=== PATIENT | female | born 1945 | race Caucasian/White ===

== ENCOUNTER 2020-10-06 00:17 | Emergency (ER) | payer MEDICAID ==
[~2020-10-06] VITALS: Ht 152.4 cm; Wt 60.2 kg
[2020-10-06] MEDS ORDERED: ACETAMINOPHEN 325MG TABLET PO STA (01:33)
[2020-10-06 01:57] LABS: BASOPHILS % 0.4 % (0.0-2.0); HEMATOCRIT. 38.1 % (36.0-48.0); LYMPHOCYTES % 32.6 % (20.0-50.0); MEAN CORPUSCULAR HEMOGLOBIN 31.2 pg (28.0-32.0); MEAN CORPUSCULAR VOLUME 91.2 fL (81.0-99.0); MEAN PLATELET VOLUME 7.6 fl (7.4-10.4); MONOCYTES % 5.9 % (2.0-8.0); NEUTROPHILS % 61.1 % (40.0-76.0); PLATELET 159 x1000/uL (130-400); RED BLOOD CELL COUNT 4.17 mill/uL (4.2-5.4)
[2020-10-06 02:01] LABS: CHLORIDE 104 mEq/L (98-107)
[2020-10-06 04:35] LABS: CLARITY URINE CLEAR (CLEAR); COLOR URINE YELLOW (YELLOW); KETONES URINE TRACE (NEGATIVE); LEUKOCYTE ESTERASE URINE NEGATIVE (NEGATIVE); NITRITE URINE NEGATIVE (NEGATIVE); OCCULT BLOOD URINE 2+ (NEGATIVE); PROTEIN URINE 2+ (NEGATIVE); SPECIFIC GRAVITY URINE 1.015 (1.005-1.030); UROBILINOGEN URINE 0.2 E.U./dL (0.2-1.0)
[2020-10-06] MEDS ORDERED: ONDANSETRON HCL 4MG/2ML INJ IV ONE (05:45)
[2020-10-06] MEDS ORDERED: POTASSIUM CHLORIDE 20MEQ TABLET SR PO ONE (05:45)
[2020-10-06 06:06] VITALS: BP 132/88
== END 2020-10-06 06:45 | disposition home or self-care (01) ==
LOC: ER 00:17
DX: R09.89 Other specified symptoms and signs involving the circulatory and respiratory systems (principal); R50.9 Fever, unspecified; R05 Cough; R19.7 Diarrhea, unspecified; R53.1 Weakness; E87.6 Hypokalemia; R63.0 Anorexia; Z68.25 Body mass index [BMI] 25.0-25.9, adult; R10.9 Unspecified abdominal pain
CPT/HCPCS: 36415; 71045; 80048; 80076; 81003; 83605; 83690; 84145; 84484; 85025; 87040; 87086; 93005; 96374; 99285; J2405

== ENCOUNTER 2020-10-06 14:41 | Inpatient (IN) | payer MEDICAID, OTHER ==
[~2020-10-06] VITALS: Ht 157.5 cm; Wt 58.1 kg
[2020-10-06] MEDS ORDERED: MORPHINE SULFATE 4 MG/ML CPJ (NOT FOR IM USE) IV STA (15:36)
[2020-10-06] MEDS ORDERED: ONDANSETRON HCL 4MG/2ML INJ IV STA (15:36)
[2020-10-06 16:37] LABS: BASOPHILS % 0.2 % (0.0-2.0); HEMOGLOBIN. 12.4 g/dL (12.0-16.0); MEAN CORPUSCULAR HEMOGLOBIN 31.1 pg (28.0-32.0); MEAN PLATELET VOLUME 7.4 fl (7.4-10.4); MONOCYTES % 5.6 % (2.0-8.0); NEUTROPHILS % 66.2 % (40.0-76.0); PLATELET 168 x1000/uL (130-400); RED CELL DISTRIBUTION WIDTH 13.1 % (11.6-14.6)
[2020-10-06 16:44] LABS: CHLORIDE 103 mEq/L (98-107)
[2020-10-06 16:46] LABS: PROTHROMBIN TIME 10.4 sec (9.6-11.0)
[2020-10-06 16:48] LABS: ETHANOL BLOOD < 10 mg/dL
[2020-10-06 21:25] VITALS: BP 114/51
[2020-10-06] MEDS ORDERED: MORPHINE SULFATE 4 MG/ML CPJ (NOT FOR IM USE) IV PRN (21:29)
[2020-10-06] MEDS ORDERED: DIPHENHYDRAMINE 50MG/ML VIAL IV PRN (21:30)
[2020-10-06] MEDS ORDERED: IOHEXOL-300 100 ML BOTTLE ONE (22:11)
[2020-10-06 22:17] VITALS: BP 114/51
[2020-10-06] MEDS: ACETAMINOPHEN 325MG TABLET PO PRN (22:23)
[2020-10-07] VITALS: BP 107/54
[2020-10-07] MEDS: PIPERACILLIN/TAZOBACTAM 3.375 G in DEXT 5% WATER 100 ML IV SCH ×4 (01:16→21:10)
[2020-10-07] MEDS: DEXT 5%/0.45% NACL KCL 10MEQ/L 1,000 ML IV SCH ×3 (01:18→18:32)
[2020-10-07 04:00] VITALS: BP 110/57
[2020-10-07 05:18] LABS: CHLORIDE 102 mEq/L (98-107)
[2020-10-07 05:22] LABS: BASOPHILS % 0.2 % (0.0-2.0); HEMATOCRIT. 36.3 % (36.0-48.0); HEMOGLOBIN. 12.3 g/dL (12.0-16.0); LYMPHOCYTES % 31.4 % (20.0-50.0); MEAN CORPUSCULAR HEMOGLOBIN 30.8 pg (28.0-32.0); MEAN CORPUSCULAR VOLUME 90.8 fL (81.0-99.0); MEAN PLATELET VOLUME 7.3 fl (7.4-10.4); MONOCYTES % 5.2 % (2.0-8.0); NEUTROPHILS % 63.2 % (40.0-76.0); PLATELET 163 x1000/uL (130-400)
[2020-10-07 05:27] LABS: PHOSPHORUS 3.1 mg/dL (2.5-4.9)
[2020-10-07 08:00] VITALS: BP 138/71
[2020-10-07] MEDS: FAMOTIDINE 20MG/2ML VIAL IV SCH ×2 (08:02→21:11)
[2020-10-07] MEDS: ACETAMINOPHEN 325MG TABLET PO PRN ×2 (08:03→19:51)
[2020-10-07 12:00] VITALS: BP 113/61
[2020-10-07 16:00] VITALS: BP 129/71
[2020-10-07] MEDS ORDERED: POTASSIUM CHLORIDE INJ 40 MEQ in DEXT 5% WATER 500 ML IV NR (18:00)
[2020-10-07] MEDS: ONDANSETRON HCL 4MG/2ML INJ IV PRN (18:44)
[2020-10-07 20:00] VITALS: BP 131/64
[2020-10-08] VITALS (7 sets, daily range): BP systolic 102–128; BP diastolic 54–64
[2020-10-08] MEDS: ACETAMINOPHEN 325MG TABLET PO PRN ×3 (00:40→12:06)
[2020-10-08] MEDS: DEXT 5%/0.45% NACL KCL 10MEQ/L 1,000 ML IV SCH ×2 (04:40→14:30)
[2020-10-08 05:13] LABS: CHLORIDE 103 mEq/L (98-107)
[2020-10-08] MEDS: PIPERACILLIN/TAZOBACTAM 3.375 G in DEXT 5% WATER 100 ML IV SCH ×2 (05:25→13:55)
[2020-10-08 06:22] LABS: BASOPHILS % 0.4 % (0.0-2.0); HEMATOCRIT. 34.8 % (36.0-48.0); HEMOGLOBIN. 11.6 g/dL (12.0-16.0); LYMPHOCYTES % 28.2 % (20.0-50.0); MEAN CORPUSCULAR HEMOGLOBIN 30.3 pg (28.0-32.0); MEAN CORPUSCULAR VOLUME 91.1 fL (81.0-99.0); MEAN PLATELET VOLUME 7.6 fl (7.4-10.4); MONOCYTES % 4.5 % (2.0-8.0); NEUTROPHILS % 66.9 % (40.0-76.0); PLATELET 194 x1000/uL (130-400); RED BLOOD CELL COUNT 3.82 mill/uL (4.2-5.4); RED CELL DISTRIBUTION WIDTH 13.1 % (11.6-14.6)
[2020-10-08] MEDS: FAMOTIDINE 20MG/2ML VIAL IV SCH (09:05)
[2020-10-08] MEDS ORDERED: POTASSIUM CHLORIDE INJ 40 MEQ in DEXT 5% WATER 500 ML IV NR (13:30)
[2020-10-08 14:16] LABS: CLARITY URINE CLEAR (CLEAR); COLOR URINE YELLOW (YELLOW); KETONES URINE NEGATIVE (NEGATIVE); LEUKOCYTE ESTERASE URINE NEGATIVE (NEGATIVE); NITRITE URINE NEGATIVE (NEGATIVE); OCCULT BLOOD URINE 1+ (NEGATIVE); PROTEIN URINE 1+ (NEGATIVE); SPECIFIC GRAVITY URINE 1.009 (1.005-1.030); UROBILINOGEN URINE 0.2 E.U./dL (0.2-1.0)
[2020-10-09] VITALS: BP 110/52
[2020-10-09] MEDS: DEXT 5%/0.45% NACL KCL 10MEQ/L 1,000 ML IV SCH ×3 (00:08→23:42)
[2020-10-09] MEDS: FAMOTIDINE 20MG/2ML VIAL IV SCH ×3 (00:08→23:43)
[2020-10-09] MEDS: PIPERACILLIN/TAZOBACTAM 3.375 G in DEXT 5% WATER 100 ML IV SCH ×4 (00:08→23:42)
[2020-10-09 04:00] VITALS: BP 115/65
[2020-10-09] MEDS: ACETAMINOPHEN 325MG TABLET PO PRN ×2 (05:10→16:58)
[2020-10-09 08:00] VITALS: BP 100/84
[2020-10-09] MEDS: ONDANSETRON HCL 4MG/2ML INJ IV PRN (08:19)
[2020-10-09 15:26] LABS: BASOPHILS % 0.2 % (0.0-2.0); HEMATOCRIT. 33.5 % (36.0-48.0); HEMOGLOBIN. 11.6 g/dL (12.0-16.0); LYMPHOCYTES % 17.9 % (20.0-50.0); MEAN CORPUSCULAR HEMOGLOBIN 31.3 pg (28.0-32.0); MEAN CORPUSCULAR VOLUME 90.4 fL (81.0-99.0); MEAN PLATELET VOLUME 7.2 fl (7.4-10.4); MONOCYTES % 4.6 % (2.0-8.0); NEUTROPHILS % 77.3 % (40.0-76.0); PLATELET 243 x1000/uL (130-400); RED BLOOD CELL COUNT 3.71 mill/uL (4.2-5.4); RED CELL DISTRIBUTION WIDTH 12.8 % (11.6-14.6)
[2020-10-09 15:32] LABS: CHLORIDE 103 mEq/L (98-107)
[2020-10-09] MEDS ORDERED: POTASSIUM CHLORIDE 20MEQ TABLET SR PO NR (15:45)
[2020-10-09 16:00] VITALS: BP 106/46
[2020-10-09 20:00] VITALS: BP 110/51
[2020-10-10] VITALS: BP 108/45
[2020-10-10 04:00] VITALS: BP 133/55
[2020-10-10 06:24] LABS: CHLORIDE 106 mEq/L (98-107)
[2020-10-10 06:38] LABS: CREATINE KINASE 39 IU/L (26-192)
[2020-10-10] MEDS: PIPERACILLIN/TAZOBACTAM 3.375 G in DEXT 5% WATER 100 ML IV SCH ×2 (06:40→13:12)
[2020-10-10] MEDS: DEXT 5%/0.45% NACL KCL 10MEQ/L 1,000 ML IV SCH ×2 (06:40→16:30)
[2020-10-10 07:05] LABS: BASOPHILS % 0.4 % (0.0-2.0); HEMATOCRIT. 34.2 % (36.0-48.0); HEMOGLOBIN. 11.9 g/dL (12.0-16.0); LYMPHOCYTES % 18.7 % (20.0-50.0); MEAN CORPUSCULAR VOLUME 89.2 fL (81.0-99.0); MEAN PLATELET VOLUME 7.3 fl (7.4-10.4); MONOCYTES % 4.5 % (2.0-8.0); NEUTROPHILS % 76.4 % (40.0-76.0); PLATELET 260 x1000/uL (130-400); RED BLOOD CELL COUNT 3.84 mill/uL (4.2-5.4); RED CELL DISTRIBUTION WIDTH 12.8 % (11.6-14.6)
[2020-10-10 08:00] VITALS: BP 106/52
[2020-10-10] MEDS: FAMOTIDINE 20MG/2ML VIAL IV SCH ×2 (10:22→21:38)
[2020-10-10 12:10] VITALS: BP 131/67
[2020-10-10] MEDS: ONDANSETRON HCL 4MG/2ML INJ IV PRN (13:12)
[2020-10-10 16:00] VITALS: BP 115/53
[2020-10-10 20:00] VITALS: BP 116/60
[2020-10-11] VITALS: BP 157/70
[2020-10-11] MEDS: ONDANSETRON HCL 4MG/2ML INJ IV PRN (01:41)
[2020-10-11] MEDS: DEXT 5%/0.45% NACL KCL 10MEQ/L 1,000 ML IV SCH ×3 (01:48→21:40)
[2020-10-11 04:00] VITALS: BP 143/73
[2020-10-11 07:23] LABS: BASOPHILS % 0.4 % (0.0-2.0); HEMATOCRIT. 32.3 % (36.0-48.0); HEMOGLOBIN. 11.5 g/dL (12.0-16.0); LYMPHOCYTES % 15.2 % (20.0-50.0); MEAN CORPUSCULAR HEMOGLOBIN 31.4 pg (28.0-32.0); MEAN CORPUSCULAR VOLUME 88.4 fL (81.0-99.0); MEAN PLATELET VOLUME 7.5 fl (7.4-10.4); MONOCYTES % 5.2 % (2.0-8.0); NEUTROPHILS % 79.2 % (40.0-76.0); PLATELET 318 x1000/uL (130-400); RED BLOOD CELL COUNT 3.66 mill/uL (4.2-5.4); RED CELL DISTRIBUTION WIDTH 12.7 % (11.6-14.6)
[2020-10-11 07:34] LABS: CHLORIDE 104 mEq/L (98-107)
[2020-10-11 08:00] VITALS: BP 96/44
[2020-10-11] MEDS: FAMOTIDINE 20MG/2ML VIAL IV SCH ×2 (08:28→20:28)
[2020-10-11] MEDS ORDERED: DIATR MEGLU/DIATRIZOATE SOLN 30ML PO SCH (09:15)
[2020-10-11 12:00] VITALS: BP 105/59
[2020-10-11] MEDS ORDERED: POTASSIUM CHLORIDE 20MEQ TABLET SR PO SCH (12:15)
[2020-10-11] MEDS ORDERED: IOHEXOL-300 100 ML BOTTLE ONE (14:29)
[2020-10-11 16:00] VITALS: BP 138/64
[2020-10-11] MEDS: METOCLOPRAMIDE HCL 10MG/2ML VIAL IV SCH (18:32)
[2020-10-11 20:00] VITALS: BP 101/48
[2020-10-12] VITALS: BP 112/44
[2020-10-12] MEDS: METOCLOPRAMIDE HCL 10MG/2ML VIAL IV SCH ×4 (00:08→18:31)
[2020-10-12 04:00] VITALS: BP 134/67
[2020-10-12] MEDS: ACETAMINOPHEN 325MG TABLET PO PRN ×2 (04:54→13:38)
[2020-10-12] MEDS: FAMOTIDINE 20MG/2ML VIAL IV SCH (08:45)
[2020-10-12] MEDS: DEXT 5%/0.45% NACL KCL 10MEQ/L 1,000 ML IV SCH ×2 (08:45→18:31)
[2020-10-12] MEDS: ONDANSETRON HCL 4MG/2ML INJ IV PRN ×2 (08:45→13:03)
[2020-10-12 20:00] VITALS: BP 130/69
[2020-10-12] MEDS ORDERED: LEVOFLOXACIN 250MG TABLET PO SCH (21:00)
[2020-10-12] MEDS ORDERED: POTASSIUM CHLORIDE INJ 40 MEQ in DEXT 5% WATER 500 ML IV NR (22:30)
[2020-10-13] VITALS: BP 137/71
[2020-10-13 04:00] VITALS: BP 115/58
[2020-10-13 07:08] LABS: BASOPHILS % 0.5 % (0.0-2.0); EOSINOPHILS % 0.8 % (0.0-5.0); HEMATOCRIT. 33.1 % (36.0-48.0); HEMOGLOBIN. 11.8 g/dL (12.0-16.0); LYMPHOCYTES % 21.8 % (20.0-50.0); MEAN CORPUSCULAR HEMOGLOBIN 31.3 pg (28.0-32.0); MEAN CORPUSCULAR VOLUME 87.9 fL (81.0-99.0); MEAN PLATELET VOLUME 7.1 fl (7.4-10.4); MONOCYTES % 6.2 % (2.0-8.0); NEUTROPHILS % 70.7 % (40.0-76.0); PLATELET 430 x1000/uL (130-400); RED BLOOD CELL COUNT 3.77 mill/uL (4.2-5.4); RED CELL DISTRIBUTION WIDTH 12.5 % (11.6-14.6)
[2020-10-13 07:16] LABS: CHLORIDE 105 mEq/L (98-107)
[2020-10-13 07:23] LABS: PHOSPHORUS 2.8 mg/dL (2.5-4.9)
[2020-10-13 07:24] LABS: AMYLASE 190 IU/L (25-115)
[2020-10-13 08:00] VITALS: BP 117/55
[2020-10-13 12:00] VITALS: BP 112/79
[2020-10-13 16:00] VITALS: BP 115/60
[2020-10-13 17:43] VITALS: BP 115/60
== END 2020-10-13 18:40 | disposition home or self-care (01) ==
LOC: ER 14:54 → 6EST 18:00 → ENRESERV 19:49 → 6EST 22:12
PROVIDERS: ADMIT Internal Medicine; ATTEND Internal Medicine
DX: K80.00 Calculus of gallbladder with acute cholecystitis without obstruction (principal); K85.10 Biliary acute pancreatitis without necrosis or infection; E46 Unspecified protein-calorie malnutrition; E66.9 Obesity, unspecified; E87.6 Hypokalemia; E78.5 Hyperlipidemia, unspecified; E87.1 Hypo-osmolality and hyponatremia; I51.7 Cardiomegaly; Z68.23 Body mass index [BMI] 23.0-23.9, adult
CPT/HCPCS: 36415; 71045; 74177; 76705; 78227; 80048; 80053; 80061; 80076; 80320; 81003; 82150; 82550; 83605; 83735; 84100; 84484; 85025; 86850; 86900; 93005; 99285; A9537; J2270; J2405; J2543; J2765; J3480; J3490; J7060; Q9963; Q9967; G0480